=== PATIENT | female | born 1980 | race Caucasian/White ===

== ENCOUNTER 2016-12-26 18:47 | Emergency (ER) | payer OTHER ==
[2016-12-26 19:06] VITALS: BP 139/64; PULSE 78; TEMP 98.1; BMI 29.6
--- NOTE | 2016-12-26 19:42 | PDOC ---
History of Present Illness - General Chief Complaint: Edema Stated Complaint: INFECTION Time Seen by Provider: 12/26/16 19:03 History Source: Patient - History of Present Illness Occurred: reports: other Upper Extremity Pain Location: right: 2nd finger Past History - Past Medical History Allergies/Adverse Reactions: Allergies Allergy/AdvReac Type Severity Reaction Status Date / Time No Known Drug Allergies Allergy Verified 12/26/16 19:03 Home Medications: Ambulatory Orders Cephalexin [Keflex] 500 mg PO Q6H #28 capsule 12/26/16 Anemia: No Asthma: No Cancer: No Cardiac Disorders: No CVA: No COPD: No CHF: No Dementia: No Diabetes: No GI Disorders: No Disorders: No HTN: No Hypercholesterolemia: No Liver Disease: No Seizures: No Thyroid Disease: No - Surgical History Abdominal Surgery: No Appendectomy: No Cardiac Surgery: Yes (open heart surgery for heart murmur 2004) Cholecystectomy: No Lung Surgery: No Neurologic Surgery: No Orthopedic Surgery: No - Reproductive History (#): 3 Para: 2 - Psycho/Social/Smoking Cessation Hx Anxiety: No Suicidal Ideation: No Smoking Status: No Smoking History: Never smoked Have you smoked in the past 12 months: No Number of Cigarettes Smoked Daily: 0 Information on smoking cessation initiated: No Hx Alcohol Use: No Drug/Substance Use Hx: No Substance Use Type: None Hx Substance Use Treatment: No Review of Systems - Review of Systems Constitutional: No: Chills, Fever Integumentary: No: Erythema *Physical Exam - Vital Signs Last Vital Signs Temp Pulse Resp BP Pulse Ox 98.1 F 78 17 139/64 100 12/26/16 19:01 12/26/16 19:01 12/26/16 19:01 12/26/16 19:01 12/26/16 19:01 - Physical Exam General Appearance: Yes: Appropriately Dressed. No: Apparent Distress HEENT: positive: Normal Voice Neck: positive: Supple Respiratory/Chest: negative: Respiratory Distress Extremity: positive: Other (minimal induration to paronychia of R index, non- fluctuanct, no erythema) Integumentary: positive: Dry, Warm Neurologic: positive: Fully Oriented, Alert, Normal Mood/Affect Medical Decision Making - Medical Decision Making 12/26/16 19:40 36-year-old female, denies any past medical history, here with pain and swelling to right index 2 weeks. No trauma, but frequently bites her nails. Denies any fever or chills. Patient well-appearing and stable with what appears to be an early paronychia to left index, no pus formation to I and D at this time. DC with warm compresses and antibiotics. Reasons to return discussed with patient 12/26/16 19:43 *DC/Admit/Observation/Transfer Diagnosis at time of Disposition: Paronychia Qualifiers: Laterality: right Qualified Code(s): L03.011 - Cellulitis of right finger - Discharge Dispostion Disposition: HOME Condition at time of disposition: Good - Prescriptions Prescriptions: Cephalexin [Keflex] 500 mg PO Q6H #28 capsule - Patient Instructions Printed Discharge Instructions: DI for Paronychia Additional Instructions: Aplique caliente al trapo caliente al dedo 3-4 veces al da hasta que el trapo se enfre a la temperatura ambiente cada vez. [place] antibiticos segn lo prescrito. Si los sntomas empeoran, regrese a ED Print Language: DANISH
== END 2016-12-26 19:44 | disposition home or self-care (01) ==
LOC: JERFT 18:47
DX: L03.011 Cellulitis of right finger (principal)
CPT/HCPCS: 99281-25

== ENCOUNTER → 2019-09-07 | Day surgery (SDC) | payer OTHER ==
--- NOTE | 2019-09-08 14:40 | PATH ---
Surgical Pathology Report Patient Name: TONY HAN Med. Rec. #: [id number] /Age/Gender: 1980 (Age: 39) / F Account: [id number] Location: [facility] Taken: 09/07/2019 Received: 09/07/2019 Reported: 09/08/2019 Physicians: Ruthie Parish M.D. Specimen(s) Received BREAST, RIGHT, SUBAREOLAR, CORE BIOPSY Clinical History Nonpalpable lesion Ultrasound findings: Probably benign, suspicious Final Diagnosis BREAST, RIGHT, SUBAREOLAR, INTRADUCTAL DEBRIS, ULTRASOUND GUIDED CORE BIOPSY: BENIGN BREAST PARENCHYMA WITH LARGE DILATED AND ECTATIC DUCT(S). Electronically Signed Fernanda Cunningham M.D. Gross Description Received in formalin labeled "right subareolar," is a 0.9 x 0.6 x 0.1 cm aggregate of sullivan-yellow fragments of fibroadipose tissue. The formalin is filtered and the specimen is entirely submitted in one cassette. Time to formalin fixation: Less than one minute Total formalin fixation time: Approximately 7 hours. 09/07/2019 saudi09/07/2019
--- NOTE | 2019-09-08 15:29 | PATH ---
Cytology Non-Gynecological Report Patient Name: TONY HAN [facility]. Rec. #: [id number] /Age/Gender: 1980 (Age: 39) / F Account: [id number] Location: [facility] Taken: 09/07/2019 Received: 09/07/2019 Reported: 09/08/2019 Physicians: Ruthie Parish M.D. Specimen(s) Received BREAST, RIGHT, 6:00, SUBAREOLA, CYST, FINE NEEDLE ASPIRATION Clinical History Right breast cyst, pus-like material,? Abscess Final Diagnosis BREAST, RIGHT, 6:00, SUBAREOLA, CYST, FINE NEEDLE ASPIRATION: SATISFACTORY FOR EVALUATION. NO MALIGNANT CELLS IDENTIFIED. CYSTIC BREAST LESION WITH NUMEROUS MACROPHAGES, RARE MULTINUCLEATED GIANT CELLS, SCATTERED NEUTROPHILS AND LYMPHOCYTES IN A HEMORRHAGIC BACKGROUND WITH ABUNDANT PROTEINACEOUS DEBRIS. NO DUCTAL CELLS IDENTIFIED. Comment: See concurrent biopsy ([id number]). Electronically Signed Fernanda Cunningham M.D. Gross Description Approximately 60 cc of bloody fluid received fixed in 50% alcohol. One cytofunnel prepared and Pap stained. One cellblock prepared.
== END | disposition home or self-care (01) ==
LOC: JMAMMO-SUR 10:27
PROVIDERS: ATTEND Internal Medicine Pulmonary Disease
PROC: 0H9T3ZX Drainage of Right Breast, Percutaneous Approach, Diagnostic (ICD-10-PCS; principal; 2019-09-07)
PROC: 0H9T3ZX Drainage of Right Breast, Percutaneous Approach, Diagnostic (ICD-10-PCS; 2019-09-07)
DX: N60.01 Solitary cyst of right breast (principal); D24.1 Benign neoplasm of right breast
CPT/HCPCS: 19083; 76942-TC; 87070; 87075; 87186; 87205; 87899; 88173; 88305-TC; A4648

== ENCOUNTER 2020-03-22 13:01 | Emergency (ER) | payer OTHER ==
[2020-03-22 13:11] VITALS: BP 141/87; PULSE 78; TEMP 98.2; BMI 31.1
--- NOTE | 2020-03-22 13:13 | PDOC ---
Rapid Medical Evaluation Time Seen by Provider: 03/22/20 13:07 Medical Evaluation: Allergies Allergy/AdvReac Type Severity Reaction Status Date / Time No Known Drug Allergies Allergy Verified 12/26/16 19:03 03/22/20 13:08 CC: rt breast pain with lump, hx of fibrosis, has appt for saturday but did not want to wait Exam: no palpable mass, no nipple drainage Plan: further eval Discharge Disposition - Diagnosis Breast pain - Referrals - Patient Instructions - Post Discharge Activity
[2020-03-22] MEDS ORDERED: IBUPROFEN 600 MG TABLET (FP) PO ONE ×2 (13:35→13:36)
--- NOTE | 2020-03-22 13:42 | PDOC ---
History of Present Illness - General Chief Complaint: Pain Stated Complaint: PAIN Time Seen by Provider: 03/22/20 13:07 History Source: Patient Exam Limitations: Clinical Condition - History of Present Illness Initial Comments: 03/22/20 13:37 Patient with past medical history of right breast cyst present with complaint of 3-day history of right breast pain and hardness to periareolar of right breast. Denies nipple discharge, redness. Denies fever, chills. Reported having PCP appointment in 5 days for symptoms but could not wait. Report taking Tylenol for pain without improvement. Denies any other symptoms Is this a multiple visit Asthma Patient?: No Timing/Duration: other (3 days) Past History - Medical History Allergies/Adverse Reactions: Allergies Allergy/AdvReac Type Severity Reaction Status Date / Time No Known Drug Allergies Allergy Verified 03/22/20 13:09 Home Medications: Ambulatory Orders Cephalexin [Keflex] 500 mg PO Q6H #28 capsule 12/26/16 Ibuprofen 600 mg PO Q8H PRN #16 tablet 03/22/20 Anemia: No Asthma: No Cancer: No Cardiac Disorders: No CVA: No COPD: No CHF: No Dementia: No Diabetes: No GI Disorders: No Disorders: No HTN: No Hypercholesterolemia: No Liver Disease: No Seizures: No Thyroid Disease: No - Surgical History Abdominal Surgery: No Appendectomy: No Cardiac Surgery: Yes (open heart surgery for heart murmur 2004) Cholecystectomy: No Lung Surgery: No Neurologic Surgery: No Orthopedic Surgery: No - Reproductive History (#): 3 Para: 2 - Psycho-Social/Smoking History Smoking Status: No Smoking History: Unknown if ever smoked Have you smoked in the past 12 months: No Number of Cigarettes Smoked Daily: 0 - Substance Abuse Hx (Audit-C & DAST Scrn) How often the patient has a drink containing alcohol: Never Score: In Men: 4 or > Positive; In Women: 3 or > Positive: 0 Screen Result (Pos requires Nsg. Audit-10AR): Negative In the last yr the pt used illegal drug/Rx for NonMed reason: No Score: Yes response is considered Positive: 0 Screen Result (Positive result requires Nsg. DAST-10): Negative Review of Systems - Review of Systems Able to Perform ROS?: Yes Is the patient limited Yoruba proficient: No Constitutional: No: Chills, Fever, Malaise HEENTM: No: Symptoms Reported, See HPI, Eye Pain, Blurred Vision, Tearing, Recent change in vision, Double Vision, Cataracts, Ear Pain, Ocular Prothesis, Ear Discharge, Nose Pain, Nose Congestion, Tinnitus, Nose Bleeding, Hearing Loss, Throat Pain, Throat Swelling, Mouth Pain, Dental Problems, Difficulty Swallowing, Mouth Swelling, Other Respiratory: No: Symptoms reported, See HPI, Cough, Orthopnea, Shortness of Breath, SOB with Exertion, SOB at Rest, Stridor, Wheezing, Productive cough, Hemoptysis, Other Cardiac (ROS): No: Symptoms Reported, See HPI, Chest Pain, Edema, Irregular Heart Rate, Lightheadedness, Palpitations, Syncope, Chest Tightness, Other Musculoskeletal: Yes: Symptoms Reported, See HPI, Muscle Pain (Right breast pain) Integumentary: Yes: Symptoms Reported, See HPI, Lumps (Lump in right breast around nipple area). No: Erythema Neurological: Yes: Symptoms reported All Other Systems: Reviewed and Negative *Physical Exam - Vital Signs Last Vital Signs Temp Pulse Resp BP Pulse Ox 98.2 F 78 18 141/87 99 03/22/20 13:09 03/22/20 13:09 03/22/20 13:09 03/22/20 13:03/22/20 13:09 - Physical Exam General Appearance: Yes: Nourished, Appropriately Dressed. No: Apparent Distress HEENT: positive: Normal ENT Inspection Neck: positive: Supple Respiratory/Chest: positive: Lungs Clear, Normal Breath Sounds. negative: Chest Tender, Respiratory Distress, Accessory Muscle Use Cardiovascular: positive: Regular Rhythm, Regular Rate Musculoskeletal: positive: Normal Inspection Extremity: positive: Normal Inspection Integumentary: positive: Normal Color, Other (Mild tenderness to periareolar with 3 cm area of hard induration to periareolar of right breast. No discharge from breasts. No nipple inversion. No skin erythema or evidence of infection) Neurologic: positive: Fully Oriented, Alert, Normal Mood/Affect, Normal Response ED Treatment Course - RADIOLOGY Radiology Studies Ordered: Category Date Time Status BREAST US RIGHT LIMITED [US] Stat Ultrasound 03/22/20 13:35 Ordered - Medications Given in the ED: ED Medications Discontinued Medications Generic Name Dose Route Start Last Admin Trade Name Freq PRN Reason Stop Dose Admin Ibuprofen 600 mg 03/22/20 13:35 03/22/20 13:36 Motrin - PO 03/22/20 13:36 600 mg ONCE ONE Administration Medical Decision Making - Medical Decision Making 03/22/20 13:38 Patient with past medical history of right breast cyst present with complaint of 3-day history of right breast pain and hardness to periareolar of right breast. Denies nipple discharge, redness. Denies fever, chills. Reported having PCP appointment in 5 days for symptoms but could not wait. Report taking Tylenol f or pain without improvement. Denies any other symptoms Exam significant for mild tenderness to periareolar of right breast with 3 cm area of hard induration to periareolar area. No indented skin or nipple. No retracted nipple. No skin erythema. No discharge from nipple. Symptoms likely mastodynia from ovulatory versus breast cyst versus granuloma. Motrin 600 mg p.o. ordered for pain. Breast ultrasound ordered to rule out acute abnormality 03/22/20 14:44 Breast ultrasound shows no acute abnormality and show ectatic duct which is likely cause of patient pain. Patient stable for discharge on Motrin PRN for pain with advised to do warm compresses with breast specialist follow-up Discharge - Discharge Information Problems reviewed: Yes Clinical Impression/Diagnosis: Breast pain, Mastodynia of right breast Condition: Stable Disposition: HOME - Admission No - Additional Discharge Information Prescriptions: Ibuprofen 600 mg PO Q8H PRN #16 tablet PRN Reason: breast pain - Follow up/Referral Referrals: Anurag Em MD [Primary Care Provider] - Jaciel Alexander MD [Staff Physician] - Christiano Montalvo MD [Staff Physician] - - Patient Discharge Instructions Patient Printed Discharge Instructions: Mastalgia Additional Instructions: Ultrasound shows blocked duct but does not show any acute abnormality. Your pain is likely from blocked duct. Take prescribed Motrin as needed for pain. Apply warm compresses to breast as needed. Follow-up referred to breast specialist Print Language: MONGOLIAN - Post Discharge Activity
== END 2020-03-22 14:47 | disposition home or self-care (01) ==
LOC: JERFT 13:01
DX: N64.4 Mastodynia (principal)
CPT/HCPCS: 76642-TC-RT; 99285-25

== ENCOUNTER 2020-08-23 15:17 | Emergency (ER) | payer OTHER ==
[2020-08-23 15:23] VITALS: BMI 30.3
[2020-08-23] MEDS ORDERED: SODIUM CHLORIDE 1,000 ML IV STA (18:08)
[2020-08-23] MEDS ORDERED: METOCLOPRAMIDE HCL INJECTION 10 MG/2 ML VIAL IVPUSH ONE (18:08)
[2020-08-23 18:18] LABS: EPI CELLS 2 /uL (0-25.1); HCG,QUALITATIVE URINE Negative; HYALINE CASTS 0 /uL (0-3.1); PH,URINE 5.5 (5.0-8.0); URINE APPEARANCE CLEAR; URINE BACTERIA 4 /uL (0-1359); URINE BILIRUBIN NEGATIVE (NEGATIVE); URINE COLOR YELLOW; URINE GLUCOSE (UA) NEGATIVE (NEGATIVE); URINE KETONE NEGATIVE (NEGATIVE); URINE LEUK ESTERASE NEGATIVE (NEGATIVE); URINE NITRITE NEGATIVE (NEGATIVE); URINE PROTEIN NEGATIVE (NEGATIVE); URINE RBC 7 /uL (0-23.9); URINE UROBILINOGEN 0.2 mg/dL (0.2-1.0); URINE WBC 3 /uL (0-25.8)
[2020-08-23] MEDS ORDERED: METOCLOPRAMIDE HCL INJECTION 10 MG/2 ML VIAL ONE (18:27)
[2020-08-23 18:43] LABS: BASO % 1.2 % (0-2.0); EOS % 0.6 % (0-4.5); HEMATOCRIT 39.1 % (32.4-45.2); HEMOGLOBIN 13.1 GM/dL (10.7-15.3); LYMPH % 29.8 % (8-40); MCH 30.3 pg (25.7-33.7); MCHC 33.4 g/dl (32.0-36.0); MEAN CELL VOLUME 90.6 fl (80-96); MONO % 4.7 % (3.8-10.2); NEUT % 63.7 % (42.8-82.8); PLATELET COUNT 286 K/MM3 (134-434); RBC 4.31 M/mm3 (3.60-5.2); WHITE BLOOD COUNT 8.5 K/mm3 (4.0-10.0)
[2020-08-23 18:59] VITALS: BP 124/56; PULSE 65; TEMP 98.3
[2020-08-23 18:59] LABS: POTASSIUM 3.8 mmol/L (3.5-5.1)
[2020-08-23 19:00] LABS: CALCIUM 8.9 mg/dL (8.5-10.1)
[2020-08-23 19:02] LABS: ALBUMIN 4.2 g/dl (3.4-5.0); BLOOD UREA NITROGEN 11.4 mg/dL (7-18)
[2020-08-23 19:05] LABS: CREATININE 0.8 mg/dL (0.55-1.3)
[2020-08-23 19:07] LABS: BILIRUBIN,TOTAL 0.4 mg/dL (0.2-1)
[2020-08-23] MEDS ORDERED: CARVEDILOL 12.5 MG TABLET (FP) ONE (22:20)
== END 2020-08-23 20:50 | disposition home or self-care (01) ==
LOC: JER 15:17
PROC: 3E033GC Introduction of Other Therapeutic Substance into Peripheral Vein, Percutaneous Approach (ICD-10-PCS; principal; 2020-08-23)
PROC: 3E0337Z Introduction of Electrolytic and Water Balance Substance into Peripheral Vein, Percutaneous Approach (ICD-10-PCS; 2020-08-23)
DX: R51.9 Headache, unspecified (principal)
CPT/HCPCS: 36415; 70450-TC; 80053; 81003; 84703; 85025; 99284-25

== ENCOUNTER 2022-12-08 15:39 | Emergency (ER) | payer OTHER ==
[2022-12-08 15:45] VITALS: BP 143/71; PULSE 72; RESP 17; TEMP 98.7; BMI 30.3
[2022-12-08] MEDS ORDERED: ACETAMINOPHEN 1000 MG/100 ML BAG IVPB ONE (16:55)
[2022-12-08] MEDS ORDERED: ACETAMINOPHEN INJECTION 100 ML IVPB ONE (17:01)
[2022-12-08] MEDS ORDERED: METHOCARBAMOL 500 MG TABLET PO ONE (17:15)
[2022-12-08] MEDS ORDERED: LIDOCAINE 5% TOPICAL PATCH TP ONE (17:16)
[2022-12-08] MEDS ORDERED: METHOCARBAMOL 500 MG TABLET ONE (17:21)
[2022-12-08] MEDS ORDERED: LIDOCAINE 5% TOPICAL PATCH ONE (17:21)
[2022-12-08 17:25] LABS: BASO % 0.8 % (0-2.0); EOS % 0.5 % (0-4.5); HEMATOCRIT 37.4 % (32.4-45.2); HEMOGLOBIN 12.9 GM/dL (10.7-15.3); LYMPH % 21.4 % (8-40); MCH 30.4 pg (25.7-33.7); MCHC 34.4 g/dl (32.0-36.0); MEAN CELL VOLUME 88.5 fl (80-96); MEAN PLT VOLUME 7.8 fl (7.5-11.1); MONO % 6.5 % (3.8-10.2); NEUT % 70.8 % (42.8-82.8); PLATELET COUNT 331 10^3/uL (134-434); RBC 4.23 M/mm3 (3.60-5.2); RDW 12.9 % (11.6-15.6); WHITE BLOOD COUNT 8.5 K/mm3 (4.0-10.0)
[2022-12-08 17:46] LABS: INR 1.03 (0.83-1.09); PROTHROMBIN TIME (PATIENT) 11.9 SEC (9.7-13.0)
[2022-12-08 17:54] LABS: CALCIUM 8.8 mg/dL (8.5-10.1)
[2022-12-08 17:55] LABS: ALBUMIN 3.8 g/dl (3.4-5.0); BLOOD UREA NITROGEN 13.6 mg/dL (7-18); MAGNESIUM 2.1 mg/dL (1.8-2.4)
[2022-12-08 17:57] LABS: CREATININE 0.8 mg/dL (0.55-1.3)
[2022-12-08 17:59] LABS: BILIRUBIN,TOTAL 0.4 mg/dL (0.2-1); TOT PROT 7.6 g/dl (6.4-8.2)
[2022-12-08] MEDS ORDERED: LIDOCAINE PATCH REMOVAL MC SCH (22:00)
== END 2022-12-08 18:58 | disposition home or self-care (01) ==
LOC: JER 15:39
PROC: 3E033NZ Introduction of Analgesics, Hypnotics, Sedatives into Peripheral Vein, Percutaneous Approach (ICD-10-PCS; principal; 2022-12-08)
DX: M54.2 Cervicalgia (principal); R51.9 Headache, unspecified; R07.9 Chest pain, unspecified; Z20.822 Contact with and (suspected) exposure to COVID-19
CPT/HCPCS: 0241U-QW; 36415; 71046-TC-FY; 80053; 83735; 84484; 84703; 85025; 85379; 85610; 85730; 93005; 93010; 99285-25

== ENCOUNTER 2024-11-05 13:33 | Emergency (ER) | payer OTHER ==
[2024-11-05 13:54] VITALS: BP 139/90; PULSE 100; RESP 18; TEMP 98.6; BMI 30.2
[2024-11-05] MEDS ORDERED: ACETAMINOPHEN 500 MG TABLET (FP) ONE (14:24)
[2024-11-05] MEDS: ACETAMINOPHEN 325 MG TABLET (FP) PO ONE (14:29)
== END 2024-11-05 15:18 | disposition home or self-care (01) ==
LOC: JER 13:33 → JERFT 13:33
DX: M25.561 Pain in right knee (principal); G89.29 Other chronic pain; J00 Acute nasopharyngitis [common cold]; X50.0XXA Overexertion from strenuous movement or load, initial encounter
CPT/HCPCS: 73562-TC-RT-FY; 84703; 99284-25